=== PATIENT | male | born 1955 | race Caucasian/White ===

== ENCOUNTER 2019-03-15 06:37 | Emergency (ER) | payer OTHER, MEDICARE, SELFPAY ==
[2019-03-15] VITALS (48 sets, daily range): BP systolic 101–121; BP diastolic 53–107; PULSE 57–85; RESP 11–29; TEMP 36.6; O2SAT 85–98
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
[2019-03-15 07:03] LABS: Abs Immature Grans 0.07 k/cumm (0.0-0.09); Absolute Lymphocyte Count 0.64 k/cumm (1.2-3.4); Basophils % 0.1; HGB 12.4 g/dL (13.5-17.5); Immature Grans % 0.5; Lymphocytes % 4.4; Mean Corp. HGB Concentration 30.2 g/dL (32.0-36.0); Mean Corpuscular Hemoglobin 26.4 pg (27.0-33.0); Mean Corpuscular Volume 87.4 fL (80-95); Mean Platelet Volume 10.5 fL (8.0-11.0); Monocytes % 5.5; Neutrophils % 89.5; Platelet Count 159 x1000/uL (130-400); RBC 4.69 m/cumm (4.50-6.00); RBC Distribution Width 18.1 % (11.8-14.1)
--- NOTE | 2019-03-15 07:07 | NUR.NOTE ---
Pt able to recall names of home medications, unable to recall strengths.
[2019-03-15] MEDS: Normal Saline 1,000 ML 150 ML IV (07:09)
[2019-03-15 07:11] LABS: Absolute Basophil Count 0.01 k/cumm (0.0-0.2); Absolute Neutrophil Count 13.07 k/cumm (1.2-6.7)
[2019-03-15 07:27] LABS: INR 1.2 (0.9-1.1)
[2019-03-15 07:32] LABS: ALT 11 U/L (16-63); AST 12 U/L (15-37); Alkaline Phosphatase 68 U/L (46-116); BUN 20 mg/dL (7-18); Bilirubin, Total 1.5 mg/dL (0.2-1.0); CREATININE 1.54 mg/dL (0.70-1.30); Calcium 8.2 mg/dL (8.5-10.1); Chloride 102 mmol/L (98-107); Estimated GFR 45.56 (mL/min/1.73m2); Glucose 173 mg/dL (74-106); Magnesium 1.7 mg/dL (1.8-2.4); Potassium 4.2 mmol/L (3.5-5.1); Sodium 139 mmol/L (136-145); Total Protein 7.5 g/dL (6.4-8.2); Troponin I 0.05 ng/Ml (<0.06)
--- NOTE | 2019-03-15 07:57 | DI.CT_ITS ---
EXAM: CT CHEST PE CTA CLINICAL HISTORY: NEAR SYNCOPE, LOW SATS TECHNIQUE: CT angiography of the chest was performed with a bolus infusion of 100 cc of Omnipaque [address] angiography was performed with multi-slice acquisition and multi-planar and/or 3D reconstruc tions. COMPARISON: No exams were available for comparison FINDINGS: Images obtained through the upper abdomen show unremarkable appearance of visualized portions of kid neys, adrenals, liver spleen and pancreas. There is a transvenous cardiac pacemaker in position with lead tips in right ventricular apex. There is moderate cardiomegaly. No evidence of pulmonary embolic disease. Thoracic aorta is not well opacified. No gross mediastina l adenopathy. Lungs appear clear with mosaic attenuation. Tracheobronchial tree appears intact. IMPRESSION: No evidence of pulmonary embolic disease. Cardiomegaly is noted without jena CHF.
[2019-03-15] MEDS: Omnipaque 350 MG/ML 100 ML BTL IJ (08:03)
[2019-03-15] MEDS: MAGNESIUM SULFATE 2 GM/50 ML BAG IVPB (08:05)
[2019-03-15 10:15] LABS: Troponin I 0.08 ng/Ml (<0.06)
--- NOTE | 2019-03-15 10:37 | NUR.NOTE ---
pt ate full breakfast Nursing Note:
[2019-03-15] MEDS: Normal Saline Flush 10 ML SYR IVP (11:19)
== END 2019-03-15 11:33 ==
PROVIDERS: Emergency Medicine; Emergency Provider Emergency Medicine
DX: I47.2 Ventricular tachycardia (principal); R09.02 Hypoxemia; E83.42 Hypomagnesemia; R55 Syncope and collapse; I42.9 Cardiomyopathy, unspecified; Z95.810 Presence of automatic (implantable) cardiac defibrillator; I10 Essential (primary) hypertension; E11.9 Type 2 diabetes mellitus without complications; Z79.84 Long term (current) use of oral hypoglycemic drugs
CPT/HCPCS: 36415; 71275; 80053; 85027; 93005; 96365; 96366; 99285; 83735; 84484; 85025; 85610; 85730; 93010; J3490

== ENCOUNTER 2021-12-02 21:20 | Outpatient (REF) | payer MEDICARE, SELFPAY ==
[2021-12-01 20:11] LABS: HCT 34.6 % (40.0-50.0); HGB 10.5 g/dL (13.5-17.5); MCH 28.2 pg (27.0-33.0); MCHC 30.3 % (32.0-36.0); MCV 93 fL (80-95); MPV 12.2 fL (8.0-11.0); Platelet Count 127 10^3/uL (130-400); RBC 3.72 10^6/uL (4.36-5.78); RDW 17.7 % (11.8-14.1); RDW-SD 61.4 fL; WBC 4.66 10^3/uL (4.4-10.8)
[2021-12-01 20:29] LABS: TSH 13.35 uIU/mL (0.36-3.74)
== END 2021-12-02 21:21 | disposition home or self-care (01) ==
LOC: LBN 21:20
DX: I50.9 Heart failure, unspecified (principal); E03.9 Hypothyroidism, unspecified; D69.6 Thrombocytopenia, unspecified
CPT/HCPCS: 85027; 84443